=== PATIENT | male | born 1960 | race Hispanic/Latino ===

== ENCOUNTER 2018-05-02 12:23 | Emergency (ER) | payer BC ==
[2018-05-02 12:44] VITALS: RESP 18; TEMP 98.5
--- NOTE | 2018-05-02 13:09 | ED PDOC ---
Arrival/HPI - General Chief Complaint: Lower Extremity Problem/Injury Time Seen by Provider: 05/02/18 13:03 Historian: Patient, Spouse - History of Present Illness Narrative History of Present Illness (Text): 05/02/18 13:05 This 58 yo male presents to this ED c/o left lateral ankle pain x 7 days. Patient stated while walking on stones, he twisted his ankle. 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 She stated he continued walking on this foot since he injured it. Patient denies calf pain, knee pain, hip pain, weakness, paresthesias, or fall. Time/Duration: Other (see hpi) Context: Home Past Medical History - Provider Review Nursing Documentation Reviewed: Yes - Infectious Disease Hx of Infectious Diseases: None - Cardiac Hx Hypertension: Yes - Hematological/Oncological Hx Cancer: Yes (Colon CA) - Gastrointestinal Hx Gastrointestinal Disorders: Yes (Colon CA) Other/Comment: + tumor removal - Psychiatric Hx Substance Use: No - Surgical History Other/Comment: Colon CA - tumor removal Family/Social History - Physician Review Nursing Documentation Reviewed: Yes Family/Social History: Other (noncontributory) Smoking Status: Never Smoked Hx Alcohol Use: No Hx Substance Use: No Allergies/Home Meds Allergies/Adverse Reactions: Allergies No Known Allergies Allergy (Verified 05/02/18 12:49) Home Medications: Home Meds Medication Instructions Recorded Confirmed Benazepril/Hydrochlorothiazide 1 tab PO DAILY 05/02/18 05/02/18 [Benazepril-Hctz 20-25 mg Tab] LORazepam [Ativan] 1 tab PO Q8H PRN 05/02/18 05/02/18 Review of Systems - Review of Systems Constitutional: Normal. absent: Fatigue, Weight Change, Fevers, Night Sweats Eyes: Normal ENT: Normal Respiratory: Normal Cardiovascular: Normal Gastrointestinal: Normal Genitourinary Male: Normal Musculoskeletal: Other (left ankle pain) Skin: Normal Neurological: Normal Endocrine: Normal Hemo/Lymphatic: Normal Psychiatric: Normal Physical Exam Vital Signs Temp Pulse Resp BP Pulse Ox 05/02/18 13:41 65 18 121/69 96 05/02/18 12:23 98.5 F 68 18 123/73 95 Temperature: Afebrile Blood Pressure: Normal Pulse: Regular Respiratory Rate: Normal Appearance: Positive for: Well-Appearing, Non-Toxic, Comfortable Pain Distress: None Mental Status: Positive for: Alert and Oriented X 3 - Systems Exam Head: Present: Atraumatic, Normocephalic, Other (no raccoon sign. No bryan sign) Pupils: Present: PERRL, Other (no hyphema) Extroacular Muscles: Present: EOMI. No: Entrapment Conjunctiva: Present: Normal Ears: Present: Normal, Other (no hemotympanum) Mouth: Present: Moist Mucous Membranes Neck: Present: Normal Range of Motion Back: Present: Normal Inspection Upper Extremity: Present: Normal Inspection, Normal ROM Lower Extremity: Present: NORMAL PULSES, Tenderness ((+) mild tenderness on left lateral malleoulus on palpation. No tenderness over left proximal fibula. No tenderness left base of 5th metatarsal. No posterior ankle tenderness, No calf tenderness. Arias test is negative.), Swelling, Neurovascularly Intact, Capillary Refill < 2 s. No: Edema, CALF TENDERNESS, Krista's Sign, Erythema, Deformity, Temperature Abnormalties Neurological: Present: GCS=15, CN II-XII Intact, Speech Normal, Motor Func Grossly Intact, Normal Sensory Function, Normal Cerebellar Funct, Gait Normal ( with discomfort due to pain) Skin: Present: Warm, Dry, Normal Color. No: Rashes Psychiatric: Present: Alert, Oriented x 3, Normal Insight, Normal Concentration Medical Decision Making ED Course and Treatment: 05/02/18 13:48 Re-evaluation. Patient feels better. Discussed results and plan with patient who expresses understanding. All questions answered and there is agreement with the plan to discharge home with instructions. Patient stable for discharge. Return if symptoms persist or worsen. Patient was recommended RICE. I ordered a cane, marva bandage, and air cast. I told patient to remove marva bandage at bedtime. To return to ED if pain worsen. Re-evaluation Time: 13:48 Reassessment Condition: Re-examined, Improved - RAD Interpretation Narrative RAD Interpretations (Text): 05/02/18 13:48 PROCEDURE: Left Ankle Radiographs. HISTORY: Pain COMPARISON: None FINDINGS: BONES: Bone alignment and mineralization are normal. There is no acute displaced fracture or bone destruction. There is a small faint ossific density medial to the medial malleolus likely an accessory ossification center. There is a prominent dorsal calcaneal enthesophyte. There is an os trigonum. JOINTS: There is a small joint effusion. Ankle mortise maintained. Talar dome intact SOFT TISSUES: There is moderate lateral soft tissue swelling. OTHER FINDINGS: None. IMPRESSION: No acute displaced fracture or dislocation. Moderate lateral soft tissue swelling. Small joint effusion. Radiology Orders: 05/02/18 13:04 ANKLE LEFT 3 VIEWS ROUTINE [RAD] Stat Disposition/Present on Arrival - Present on Arrival Any Indicators Present on Arrival: No History of DVT/PE: No History of Uncontrolled Diabetes: No Urinary Catheter: No History of Decub. Ulcer: No History Surgical Site Infection Following: None - Disposition Have Diagnosis and Disposition been Completed?: Yes Diagnosis: Ankle pain, left Disposition: HOME/ ROUTINE Disposition Time: 13:50 Patient Plan: Discharge Patient Problems: Current Active Problems Problem Status Onset Ankle pain, left Acute Condition: GOOD Discharge Instructions (ExitCare): Ankle Sprain (DC) Additional Instructions: Call private doctor for follow up visit in 1-2 days. Keep ankle elevated, ice , rest, marva bandage, and cane for at least 7 days. Remove marva bandage at bedtime. Return to emergency if symptoms worsen. Call foot doctor if pain worsen or persist. Prescriptions: Famotidine [Pepcid] 40 mg PO DAILY #10 tablet Ibuprofen [Motrin] 400 mg PO Q8H PRN #20 tab PRN Reason: Pain, Severe (8-10) Referrals: Ian Reddy DPM [Staff Provider] - Follow up with primary Forms: [employer] (Mongolian), WORK NOTE
[2018-05-02 13:41] VITALS: BP 121/69; PULSE 65; O2SAT 96
--- NOTE | 2018-05-02 13:44 | RAD ---
Date of service: 05/02/2018 PROCEDURE: Left Ankle Radiographs. HISTORY: Pain COMPARISON: None FINDINGS: BONES: Bone alignment and mineralization are normal. There is no acute displaced fracture or bone destruction. There is a small faint ossific density medial to the medial malleolus likely an accessory ossification center. There is a prominent dorsal calcaneal enthesophyte. There is an os trigonum. JOINTS: There is a small joint effusion. Ankle mortise maintained. Talar dome intact SOFT TISSUES: There is moderate lateral soft tissue swelling. OTHER FINDINGS: None. IMPRESSION: No acute displaced fracture or dislocation. Moderate lateral soft tissue swelling. Small joint effusion.
== END 2018-05-02 14:03 | disposition home or self-care (01) ==
LOC: ED 12:23 → MERGE 12:23 → ED 14:03
DX: M25.572 Pain in left ankle and joints of left foot (principal)